=== PATIENT | female | born 1990 | race Caucasian/White ===

== ENCOUNTER 2016-11-03 15:48 | Emergency (ER) | payer MEDICAID ==
[~2016-11-03 15:48] MED LIST: CIPR500T87 PO; HYDR-3138 PO; HYDR-3342 PO; LACT1CAP24 PO; METR500T PO; NICO1PAT4 TD; OMEP-110 PO; ONDA4TAB7 PO
[2016-11-03] MEDS ORDERED: SODIUM CHLORIDE FLUSH 10ML SYR IVF ONE (16:00)
[2016-11-03] MEDS ORDERED: SODIUM CHLORIDE 0.9% 1,000ML IVBOLUS ONE (16:00)
[2016-11-03] MEDS ORDERED: ONDANSETRON 2MG/ML, 2ML IVPush ONE (16:00)
[2016-11-03] MEDS ORDERED: ONDANSETRON 2MG/ML, 2ML ONE (16:41)
[2016-11-03] MEDS ORDERED: MORPHINE SULFATE 4 MG/ML, 1ML ONE (16:41)
[2016-11-03 16:42] LABS: ASPARTATE AMINO TRANSFERASE 9 U/L (15-37); BLOOD UREA NITROGEN 12 mg/dL (7-18)
[2016-11-03] MEDS ORDERED: FAMOTIDINE 20 MG/2 ML ONE (16:42)
[2016-11-03] MEDS ORDERED: MORPHINE SULFATE 4 MG/ML, 1ML IVPush ONE (17:00)
[2016-11-03] MEDS ORDERED: FAMOTIDINE 20 MG/2 ML IVPush ONE (17:00)
[2016-11-03 17:54] LABS: PATH.CAST-FLAG NOT PRESENT; SPERM-FLAG NOT PRESENT; SRC-FLAG NOT PRESENT; XTAL-FLAG NOT PRESENT; YLC-FLAG NOT PRESENT
[2016-11-03 19:53] VITALS: BP 94/52
== END 2016-11-03 20:32 | disposition home or self-care (01) ==
LOC: ED 20:26
DX: O26.891 Other specified pregnancy related conditions, first trimester (principal); Z3A.00 Weeks of gestation of pregnancy not specified; R10.11 Right upper quadrant pain; R10.31 Right lower quadrant pain; R10.2 Pelvic and perineal pain
CPT/HCPCS: 36415; 76700; 76801; 80053; 81001; 84702; 85025; 87086; 96361; 96374; 96375; 99285; J2405; J7030; S0028

== ENCOUNTER 2017-04-30 10:42 | Outpatient (CLI) | payer MEDICAID ==
[~2017-04-30 10:42] MED LIST changes: -HYDR-3138 PO; +HYDR-3237 PO; +NICO-486 TD; -NICO1PAT4 TD
[2017-04-30 11:32] VITALS: BP 121/69
== END 2017-04-30 11:56 | disposition home or self-care (01) ==
LOC: LDOP 10:42
PROVIDERS: ATTEND Obstetrics & Gynecology Female Pelvic Medicine and Reconstructive Surgery
DX: O26.893 Other specified pregnancy related conditions, third trimester (principal); R10.9 Unspecified abdominal pain; Z3A.32 32 weeks gestation of pregnancy
CPT/HCPCS: 59025; 99211; G0463

== ENCOUNTER 2021-02-24 13:31 | Emergency (ER) | payer MEDICAID ==
[~2021-02-24] VITALS: Ht 165.1 cm; Wt 58.2 kg
[2021-02-24 13:56] VITALS: BP 122/75
--- NOTE | 2021-02-24 14:07 | NUR ---
PT TO ROOM AT THIS TIME. ED MD AT BEDSIDE.
[2021-02-24] MEDS ORDERED: OXYMETAZOLINE NASAL SPRAY 0.05%,30ML ONE (14:18)
[2021-02-24] MEDS ORDERED: OXYMETAZOLINE NASAL SPRAY 0.05%, 15ML NAS ONE (14:30)
== END 2021-02-24 14:24 | disposition home or self-care (01) ==
LOC: ED 14:20
DX: U07.1 COVID-19 (principal); R04.0 Epistaxis; Z87.891 Personal history of nicotine dependence
CPT/HCPCS: 99283; U0003; U0005